=== PATIENT | female | born 1965 | race Two or more races ===

== ENCOUNTER 2017-09-23 10:42 | Emergency (ER) | payer OTHER ==
[~2017-09-23] VITALS: Ht 160 cm; Wt 49.4 kg
[~2017-09-23 10:42] MED LIST: ALPRAZOLAM0.25 MG PO; ATIVAN0.5 M1; ATROVENT 00.5 MG/2.5 IH; CLARITIN PO; CREON 10 CAPSU249 MG; FAMOTIDINE20 MG PO; Flonase 50MCG NS; IPRATROPIU0.2 MG/1 M IH; KLONOPIN0.125 MG/T PO; LEVSIN0.125 MG; MEDROL4 MG PO; MEGESTROL400 MG/10 PO; MUCOMYST IH; MULTIVITAMINS1 EAC1 PO; MYCELEX MM; NORVASC2.5 M1; NORVASC2.5 M1 PO; OMEPRAZOLE10 MG; PEPCID PO; PEPCID20 MG; PROTONIX20 MG; PROTONIX40 MG PO; PROVENTIL2.5 MG/3 M; PULMICORT1 MG/2 ML; Pulmicort 0.5 MG/2 ML AMPUL IH; REGLAN PO; SINGULAIR 10MG10 MG PO; SINGULAIR4 MG PO; Singulair 10MG PO; VERAMYST10 GM NS; Vasotec 10MG TAB PO; XOPENEX0.63 MG/3; XOPENEX0.63 MG/3 IH; Xopenex 0.63 MG/3 ML SOLUTION IH; ZOFRAN ODT4 MG; [UNRECOGNIZED DRUG - OTHER]; [UNRECOGNIZED DRUG - OTHER]
[2017-09-23] MEDS ORDERED: MIRTAZAPINE7.5 MG (11:12)
== END 2017-09-23 19:57 | disposition home or self-care (01) ==
LOC: ER 10:42
DX: K29.70 Gastritis, unspecified, without bleeding (principal); J45.909 Unspecified asthma, uncomplicated

== ENCOUNTER 2018-01-24 11:47 | Emergency (ER) | payer OTHER ==
[~2018-01-24] VITALS: Ht 160 cm; Wt 49.0 kg
[~2018-01-24 11:47] MED LIST changes: +MIRTAZAPINE7.5 MG
== END 2018-01-24 19:22 | disposition home or self-care (01) ==
LOC: ER 11:47
DX: K52.89 Other specified noninfective gastroenteritis and colitis (principal)

== ENCOUNTER 2018-04-25 07:08 | Outpatient (CLI) | payer OTHER | END 2018-04-25 07:21 | disposition home or self-care (01) | LOC: NUCLEAR 07:08 | DX: R07.89 Other chest pain (principal); I25.10 Atherosclerotic heart disease of native coronary artery without angina pectoris; J45.909 Unspecified asthma, uncomplicated | CPT/HCPCS: 78452; 93017; A9500; J1250 ==

== ENCOUNTER → 2018-05-02 | Outpatient (CLI) | payer OTHER | END | disposition home or self-care (01) | LOC: NUCLEAR 13:22 | DX: I82.401 Acute embolism and thrombosis of unspecified deep veins of right lower extremity (principal); R22.1 Localized swelling, mass and lump, neck ==

== ENCOUNTER 2019-01-16 08:21 | Outpatient (CLI) | payer OTHER | END 2019-01-16 08:24 | disposition home or self-care (01) | LOC: TOM 08:21 | DX: R10.30 Lower abdominal pain, unspecified (principal); Z13.0 Encounter for screening for diseases of the blood and blood-forming organs and certain disorders involving the immune mechanism; Z12.11 Encounter for screening for malignant neoplasm of colon ==

== ENCOUNTER 2019-01-30 15:08 | Emergency (ER) | payer OTHER ==
[~2019-01-30] VITALS: Ht 160 cm; Wt 68.9 kg
== END 2019-01-30 20:58 | disposition home or self-care (01) ==
LOC: ER 15:08
DX: J44.1 Chronic obstructive pulmonary disease with (acute) exacerbation (principal); J32.8 Other chronic sinusitis

== ENCOUNTER 2019-09-24 09:18 | Outpatient (CLI) | payer OTHER | END 2019-09-24 15:01 | disposition home or self-care (01) | LOC: RAD 09:18 | DX: M15.8 Other polyosteoarthritis (principal) ==

== ENCOUNTER 2021-01-08 13:19 | Inpatient (IN) | payer OTHER ==
[~2021-01-08] VITALS: Ht 160 cm; Wt 53.5 kg
[2021-01-08] MEDS ORDERED: FAMOTIDINE20 MG PO (13:50)
[2021-01-08] MEDS ORDERED: LEVSIN0.125 MG PO (13:51)
[2021-01-08] MEDS ORDERED: REMERON15 M1 PO (13:52)
[2021-01-08] MEDS ORDERED: INTESTINEX680 M1 PO (18:53)
[2021-01-08] MEDS ORDERED: MACROBID 100 M100 MG PO (18:53)
== END 2021-01-16 10:09 | disposition home or self-care (01) | DRG 690 ==
LOC: ER 13:19 → MEDI 23:18
PROVIDERS: ADMIT Internal Medicine Cardiovascular Disease; ATTEND Internal Medicine Cardiovascular Disease
PROC: 3E0F7SF Introduction of Other Gas into Respiratory Tract, Via Natural or Artificial Opening (ICD-10-PCS; 2021-01-09)
PROC: 0DB68ZX Excision of Stomach, Via Natural or Artificial Opening Endoscopic, Diagnostic (ICD-10-PCS; principal; 2021-01-11)
DX: N39.0 Urinary tract infection, site not specified (principal); J45.51 Severe persistent asthma with (acute) exacerbation; J44.1 Chronic obstructive pulmonary disease with (acute) exacerbation; Z20.822 Contact with and (suspected) exposure to COVID-19; Z21 Asymptomatic human immunodeficiency virus [HIV] infection status; B18.2 Chronic viral hepatitis C; F32.9 Major depressive disorder, single episode, unspecified; K29.80 Duodenitis without bleeding; R09.02 Hypoxemia

== ENCOUNTER 2021-02-28 13:34 | Inpatient (IN) | payer OTHER ==
[~2021-02-28] VITALS: Ht 162.6 cm; Wt 65.8 kg
[~2021-02-28 13:34] MED LIST changes: +INTESTINEX680 M1 PO; +LEVSIN0.125 MG PO; +MACROBID 100 M100 MG PO; +REMERON15 M1 PO
[2021-03-05] MEDS ORDERED: STIOLTO RESPIMAT4 GM (11:19)
== END 2021-03-05 13:17 | disposition home or self-care (01) | DRG 191 ==
LOC: ER 13:34 → MEDI 22:54 → MEDJ 03-03 11:24
PROVIDERS: ADMIT Internal Medicine Cardiovascular Disease; ATTEND Internal Medicine Cardiovascular Disease
PROC: 3E0F7SF Introduction of Other Gas into Respiratory Tract, Via Natural or Artificial Opening (ICD-10-PCS; principal; 2021-02-28)
DX: J44.1 Chronic obstructive pulmonary disease with (acute) exacerbation (principal); J45.52 Severe persistent asthma with status asthmaticus; E09.9 Drug or chemical induced diabetes mellitus without complications; K29.50 Unspecified chronic gastritis without bleeding; Z20.822 Contact with and (suspected) exposure to COVID-19

== ENCOUNTER 2021-08-02 13:58 | Inpatient (IN) | payer OTHER ==
[~2021-08-02] VITALS: Ht 160 cm; Wt 52.6 kg
[~2021-08-02 13:58] MED LIST changes: +STIOLTO RESPIMAT4 GM
[2021-08-07] MEDS ORDERED: FAMOTIDINE20 MG/2 M1 (10:26)
== END 2021-08-08 18:48 | DRG 392 ==
LOC: ER 13:58 → MEDJ 08-03 19:59 → MEDI 08-03 19:59 → MEDJ 08-03 22:48
PROVIDERS: ADMIT Internal Medicine Cardiovascular Disease; ATTEND Internal Medicine Cardiovascular Disease
PROC: BW21YZZ Computerized Tomography (CT Scan) of Abdomen and Pelvis using Other Contrast (ICD-10-PCS; principal; 2021-08-06)
DX: K57.30 Diverticulosis of large intestine without perforation or abscess without bleeding (principal); J45.901 Unspecified asthma with (acute) exacerbation; J44.9 Chronic obstructive pulmonary disease, unspecified; K29.00 Acute gastritis without bleeding; R10.13 Epigastric pain; Z20.822 Contact with and (suspected) exposure to COVID-19; I10 Essential (primary) hypertension

== ENCOUNTER 2021-09-17 15:33 | Inpatient (IN) | payer OTHER ==
[~2021-09-17] VITALS: Ht 160 cm; Wt 49.0 kg
[~2021-09-17 15:33] MED LIST changes: +FAMOTIDINE20 MG/2 M1
[2021-09-18] MEDS ORDERED: MONTELUKAST SOD10 MG (08:05)
[2021-09-29] MEDS ORDERED: POM (MEDICAMENTO EN IH (19:41)
[2021-09-29] MEDS ORDERED: XOPENEX0.63 MG/3 IH (19:41)
[2021-09-29] MEDS ORDERED: CEFTRIAXONE1 GM IM (19:41)
[2021-09-29] MEDS ORDERED: PRE PROTEIN1 EACH PO (19:41)
[2021-09-29] MEDS ORDERED: LORATADINE10 MG PO (19:41)
[2021-09-29] MEDS ORDERED: CLOTRIMAZOLE10 MG MM (19:41)
[2021-09-29] MEDS ORDERED: FAMOTIDINE20 MG PO (19:41)
[2021-09-29] MEDS ORDERED: FARXIGA5 MG PO (19:41)
[2021-09-29] MEDS ORDERED: REMERON15 M1 PO (19:41)
[2021-09-29] MEDS ORDERED: CHEST CONGESTI400 MG PO (19:49)
== END 2021-09-29 19:58 | DRG 208 ==
LOC: ER 15:33 → SEC-K 21:03 → MEDJ 21:03 → ICU 09-20 21:54 → MEDJ 09-26 14:44 → ICU 09-26 14:52 → MEDJ 09-26 20:48
PROVIDERS: ADMIT Internal Medicine Cardiovascular Disease; ATTEND Internal Medicine Cardiovascular Disease
PROC: 5A1945Z Respiratory Ventilation, 24-96 Consecutive Hours (ICD-10-PCS; principal; 2021-09-18)
PROC: 0BH17EZ Insertion of Endotracheal Airway into Trachea, Via Natural or Artificial Opening (ICD-10-PCS; 2021-09-18)
PROC: 4A12X4Z Monitoring of Cardiac Electrical Activity, External Approach (ICD-10-PCS; 2021-09-18)
PROC: 02HV33Z Insertion of Infusion Device into Superior Vena Cava, Percutaneous Approach (ICD-10-PCS; 2021-09-21)
DX: J44.1 Chronic obstructive pulmonary disease with (acute) exacerbation (principal); J45.52 Severe persistent asthma with status asthmaticus; G72.81 Critical illness myopathy; R09.02 Hypoxemia; E09.65 Drug or chemical induced diabetes mellitus with hyperglycemia; J32.8 Other chronic sinusitis; I50.9 Heart failure, unspecified; J84.10 Pulmonary fibrosis, unspecified; K29.60 Other gastritis without bleeding; I11.0 Hypertensive heart disease with heart failure; Z20.822 Contact with and (suspected) exposure to COVID-19; Z79.4 Long term (current) use of insulin

== ENCOUNTER 2022-01-23 11:34 | Inpatient (IN) | payer OTHER ==
[~2022-01-23] VITALS: Ht 160 cm; Wt 52.6 kg
[~2022-01-23 11:34] MED LIST changes: +CEFTRIAXONE1 GM IM; +CHEST CONGESTI400 MG PO; +CLOTRIMAZOLE10 MG MM; +FARXIGA5 MG PO; +LORATADINE10 MG PO; +MONTELUKAST SOD10 MG; +POM (MEDICAMENTO EN IH; +PRE PROTEIN1 EACH PO
[2022-01-23] MEDS ORDERED: BUDEO.25 IH (11:42)
--- NOTE | 2022-01-23 11:43 | NUR ---
SE RECIBE PTE ALERTA Y ORIENTADA X3,REFIERE MARQUIS TENIDO 4 EMESIS HASTA LA MADRUGADA DE HOY ,REFIERE QUE LA SEMANA PASADA TUVO LOS MISMOS SINTOMAS,NAUSEA ,DOLOR ABDOMINAL.
--- NOTE | 2022-01-23 12:55 | NUR ---
PACIENTE EVALUADA POR DR CELESTIN QUIEN [place] MEDICO, SE ORIENTA A PACIENTE SOBRE EL MISMO Y REFIERE ENTENDER, SE COLECTAN MUESTRAS DE LABORATORIO Y SE CANALIZA BAJO MEDIDAS ASEPTICAS. AREA DE CANALIZACION PATENTE, PHU DE EDEMA Y ERITEMA. SE MANTIENE BAJO OBSERVACION POR CAMBIOS SIGNIFICATIVOS EN VINCENT TRATAMIENTO MEDICO.
--- NOTE | 2022-01-23 23:09 | NUR ---
PACIENTE ALERTA Y ORIENTADA X3. EN TA CON BARANDAS ELEVADAS. RECIBIENDO 0.9% NSS DE 1,000ML BAJANDO A 125ML/HR. PACIENTE CONSULTADA CON WENDY. JOSEPH GRECO. SE MANTIENE BAJO OBSERVACION POR CAMBIOS SIGNIFICATIVOS.
--- NOTE | 2022-01-24 07:07 | NUR ---
PACIENTE FEMENINA ALERTA Y ORIENTADA EN L[place] ALCIDES ESFERAS SE OBSERVA CON BUEN PATRON RESPIRATORIO, CANALIZACION PATENTE, LIMPIA Y SECA CON IVF 0.9NSS AT 175ML/HR. PACIENTE CONSULTADA CON DRA OLIVIER. SE MANTIENE PACIENTE EN OBSERVACION.
[2022-01-30] MEDS ORDERED: CLOTRIMAZOLE-BE15 G1 (10:23)
[2022-02-01] MEDS ORDERED: PHENERGAN25 MG PO (13:00)
[2022-02-01] MEDS ORDERED: HYOSCYAMINE0.125 M1 SL (13:23)
[2022-02-01] MEDS ORDERED: LANSOPRAZOLE30 MG PO ×2 (13:27→13:32)
== END 2022-02-01 16:35 | disposition home or self-care (01) | DRG 392 ==
LOC: ER 11:34 → SEC-K 01-24 12:56 → MEDI 01-24 20:41
PROVIDERS: ADMIT Internal Medicine Cardiovascular Disease; ATTEND Internal Medicine Cardiovascular Disease
PROC: 02HV33Z Insertion of Infusion Device into Superior Vena Cava, Percutaneous Approach (ICD-10-PCS; 2022-01-25)
PROC: 0DB68ZX Excision of Stomach, Via Natural or Artificial Opening Endoscopic, Diagnostic (ICD-10-PCS; principal; 2022-01-29)
PROC: 0DJD8ZZ Inspection of Lower Intestinal Tract, Via Natural or Artificial Opening Endoscopic (ICD-10-PCS; 2022-01-30)
DX: K29.50 Unspecified chronic gastritis without bleeding (principal); K57.30 Diverticulosis of large intestine without perforation or abscess without bleeding; K20.80 Other esophagitis without bleeding; Z20.822 Contact with and (suspected) exposure to COVID-19; J44.9 Chronic obstructive pulmonary disease, unspecified

== ENCOUNTER 2022-05-04 10:07 | Emergency (ER) | payer OTHER ==
[~2022-05-04] VITALS: Ht 162.6 cm; Wt 44.5 kg
[~2022-05-04 10:07] MED LIST changes: +BUDEO.25 IH; +CLOTRIMAZOLE-BE15 G1; +HYOSCYAMINE0.125 M1 SL; +LANSOPRAZOLE30 MG PO; +PHENERGAN25 MG PO
[2022-05-04] MEDS ORDERED: PREVACID30 MG (10:17)
[2022-05-05] MEDS ORDERED: PEPCID AC20 MG PO (11:47)
[2022-05-05] MEDS ORDERED: NASAL MIST126 ML NASAL (11:47)
[2022-05-05] MEDS ORDERED: PREVACID30 MG PO (11:47)
[2022-05-05] MEDS ORDERED: IPRAT-ALBUT 0.5-3 ML IH (11:47)
== END 2022-05-05 12:28 | disposition home or self-care (01) ==
LOC: ER 10:07
DX: J45.901 Unspecified asthma with (acute) exacerbation (principal); J44.1 Chronic obstructive pulmonary disease with (acute) exacerbation; R06.02 Shortness of breath; K29.70 Gastritis, unspecified, without bleeding; K20.90 Esophagitis, unspecified without bleeding; I10 Essential (primary) hypertension; Z88.8 Allergy status to other drugs, medicaments and biological substances; Z88.6 Allergy status to analgesic agent; Z91.011 Allergy to milk products; Z20.822 Contact with and (suspected) exposure to COVID-19

== ENCOUNTER 2022-05-14 11:22 | Inpatient (IN) | payer OTHER ==
[~2022-05-14] VITALS: Ht 160 cm; Wt 44.5 kg
[~2022-05-14 11:22] MED LIST changes: +IPRAT-ALBUT 0.5-3 ML IH; +NASAL MIST126 ML NASAL; +PEPCID AC20 MG PO; +PREVACID30 MG; +PREVACID30 MG PO
[2022-05-26] MEDS ORDERED: LORATADINE10 MG PO (13:58)
[2022-05-26] MEDS ORDERED: AMLODIPINE BESYL5 MG PO (13:59)
[2022-05-26] MEDS ORDERED: VASOTEC20 MG PO (14:01)
[2022-05-26] MEDS ORDERED: ISOSORBIDE MONO30 MG PO (14:02)
[2022-05-26] MEDS ORDERED: LORAZEPAM0.5 MG PO (14:03)
[2022-05-26] MEDS ORDERED: TUSSIN MUC100 MG/5 M PO (14:04)
[2022-05-26] MEDS ORDERED: FAMOTIDINE20 MG PO (14:07)
[2022-05-26] MEDS ORDERED: CLOTRIMAZOLE10 MG MM (14:08)
[2022-05-26] MEDS ORDERED: ELIQUIS5 MG PO (14:13)
[2022-05-26] MEDS ORDERED: IPRAT-ALBUT 0.5-3 ML IH (14:22)
== END 2022-05-26 15:03 | disposition home or self-care (01) | DRG 190 ==
LOC: ER 11:22 → SURH 18:38 → MEDJ 18:38 → SURH 18:42 → ICU 05-16 03:09 → MEDI 05-23 23:04
PROVIDERS: ADMIT Internal Medicine Cardiovascular Disease; ATTEND Internal Medicine Cardiovascular Disease
PROC: 3E0F7GC Introduction of Other Therapeutic Substance into Respiratory Tract, Via Natural or Artificial Opening (ICD-10-PCS; 2022-05-14)
PROC: 5A09557 Assistance with Respiratory Ventilation, Greater than 96 Consecutive Hours, Continuous Positive Airway Pressure (ICD-10-PCS; 2022-05-15)
PROC: B246ZZZ Ultrasonography of Right and Left Heart (ICD-10-PCS; 2022-05-16)
PROC: 02HV33Z Insertion of Infusion Device into Superior Vena Cava, Percutaneous Approach (ICD-10-PCS; principal; 2022-05-17)
PROC: 4A12X4Z Monitoring of Cardiac Electrical Activity, External Approach (ICD-10-PCS; 2022-05-24)
DX: J44.1 Chronic obstructive pulmonary disease with (acute) exacerbation (principal); K26.4 Chronic or unspecified duodenal ulcer with hemorrhage; E87.29 Other acidosis; N39.0 Urinary tract infection, site not specified; K29.00 Acute gastritis without bleeding; J32.8 Other chronic sinusitis; D64.9 Anemia, unspecified; R77.8 Other specified abnormalities of plasma proteins; A49.01 Methicillin susceptible Staphylococcus aureus infection, unspecified site; I10 Essential (primary) hypertension; K20.80 Other esophagitis without bleeding; C50.919 Malignant neoplasm of unspecified site of unspecified female breast; E09.65 Drug or chemical induced diabetes mellitus with hyperglycemia; Z20.822 Contact with and (suspected) exposure to COVID-19

== ENCOUNTER 2022-07-19 06:46 | Inpatient (IN) | payer OTHER ==
[~2022-07-19] VITALS: Ht 157.5 cm; Wt 44.0 kg
[~2022-07-19 06:46] MED LIST changes: +AMLODIPINE BESYL5 MG PO; +ELIQUIS5 MG PO; +ISOSORBIDE MONO30 MG PO; +LORAZEPAM0.5 MG PO; +TUSSIN MUC100 MG/5 M PO; +VASOTEC20 MG PO
[2022-08-07] MEDS ORDERED: VASOTEC10 MG PO (19:21)
[2022-08-07] MEDS ORDERED: LORATADINE10 MG PO (19:21)
[2022-08-07] MEDS ORDERED: ELIQUIS2.5 MG PO (19:21)
[2022-08-07] MEDS ORDERED: SERTRALINE HCL50 MG PO (19:21)
[2022-08-07] MEDS ORDERED: IPRAT-ALBUT 0.5-3 ML IH (19:21)
[2022-08-07] MEDS ORDERED: TRELEGY ELLIPT1 EACH PO (19:23)
[2022-08-07] MEDS ORDERED: INTEGRA CAPSUL1 EACH PO (19:26)
== END 2022-08-08 13:20 | DRG 207 ==
LOC: ER 06:46 → ICU 11:35 → ICU-2 11:35 → ICU 14:08 → MEDI 08-01 14:10
PROVIDERS: ADMIT Internal Medicine Cardiovascular Disease; ATTEND Internal Medicine Cardiovascular Disease
PROC: 0BH18EZ Insertion of Endotracheal Airway into Trachea, Via Natural or Artificial Opening Endoscopic (ICD-10-PCS; principal; 2022-07-20)
PROC: 5A1955Z Respiratory Ventilation, Greater than 96 Consecutive Hours (ICD-10-PCS; 2022-07-20)
PROC: 05HM33Z Insertion of Infusion Device into Right Internal Jugular Vein, Percutaneous Approach (ICD-10-PCS; 2022-07-23)
PROC: B34HZZZ Ultrasonography of Right Upper Extremity Arteries (ICD-10-PCS; 2022-07-23)
PROC: B54PZZZ Ultrasonography of Bilateral Upper Extremity Veins (ICD-10-PCS; 2022-07-23)
PROC: 5A0945A Assistance with Respiratory Ventilation, 24-96 Consecutive Hours, High Flow/Velocity Cannula (ICD-10-PCS; 2022-07-29)
PROC: 4A12X4Z Monitoring of Cardiac Electrical Activity, External Approach (ICD-10-PCS; 2022-08-01)
DX: J44.1 Chronic obstructive pulmonary disease with (acute) exacerbation (principal); J96.02 Acute respiratory failure with hypercapnia; J45.52 Severe persistent asthma with status asthmaticus; J70.1 Chronic and other pulmonary manifestations due to radiation; E87.4 Mixed disorder of acid-base balance; N39.0 Urinary tract infection, site not specified; I10 Essential (primary) hypertension; E09.9 Drug or chemical induced diabetes mellitus without complications

== ENCOUNTER 2022-10-02 12:12 | Inpatient (IN) | payer OTHER ==
[~2022-10-02] VITALS: Ht 152.4 cm; Wt 52.2 kg
[~2022-10-02 12:12] MED LIST changes: +ELIQUIS2.5 MG PO; +INTEGRA CAPSUL1 EACH PO; +SERTRALINE HCL50 MG PO; +TRELEGY ELLIPT1 EACH PO; +VASOTEC10 MG PO
[2022-10-04] MEDS ORDERED: MONTELUKAST SOD10 MG (08:31)
[2022-10-14] MEDS ORDERED: LORATADINE10 MG PO (21:25)
[2022-10-14] MEDS ORDERED: IPRAT-ALBUT 0.5-3 ML IH (21:25)
[2022-10-14] MEDS ORDERED: REMERON15 M1 PO (21:26)
[2022-10-14] MEDS ORDERED: LORAZEPAM0.5 MG PO (21:26)
[2022-10-14] MEDS ORDERED: VASOTEC10 MG PO (21:26)
[2022-10-14] MEDS ORDERED: SERTRALINE HCL50 MG PO (21:27)
[2022-10-14] MEDS ORDERED: PRE PROTEIN1 EACH PO (21:28)
[2022-10-14] MEDS ORDERED: TUSSIN MUC100 MG/5 M PO (21:30)
[2022-10-14] MEDS ORDERED: MEGESTROL400 MG/11 PO (21:31)
[2022-10-14] MEDS ORDERED: TRELEGY ELLIPT1 EACH PO (21:31)
[2022-10-14] MEDS ORDERED: PEPCID AC20 MG PO (21:32)
[2022-10-14] MEDS ORDERED: LANSOPRAZOLE30 MG PO (21:32)
== END 2022-10-15 10:25 | disposition home or self-care (01) | DRG 190 ==
LOC: ER 12:12 → SEC-K 10-03 11:13 → MEDJ 10-03 11:13 → ICU 10-05 02:54 → MEDJ 10-11 11:14
PROVIDERS: ADMIT Internal Medicine Cardiovascular Disease; ATTEND Internal Medicine Cardiovascular Disease
PROC: BW24ZZZ Computerized Tomography (CT Scan) of Chest and Abdomen (ICD-10-PCS; 2022-10-03)
PROC: 5A0935A Assistance with Respiratory Ventilation, Less than 24 Consecutive Hours, High Flow/Velocity Cannula (ICD-10-PCS; 2022-10-03)
PROC: 4A12X4Z Monitoring of Cardiac Electrical Activity, External Approach (ICD-10-PCS; 2022-10-04)
PROC: 5A09457 Assistance with Respiratory Ventilation, 24-96 Consecutive Hours, Continuous Positive Airway Pressure (ICD-10-PCS; 2022-10-04)
PROC: 02HV33Z Insertion of Infusion Device into Superior Vena Cava, Percutaneous Approach (ICD-10-PCS; principal; 2022-10-05)
PROC: B24BYZZ Ultrasonography of Heart with Aorta using Other Contrast (ICD-10-PCS; 2022-10-09)
DX: J44.1 Chronic obstructive pulmonary disease with (acute) exacerbation (principal); J18.9 Pneumonia, unspecified organism; J96.92 Respiratory failure, unspecified with hypercapnia; J45.902 Unspecified asthma with status asthmaticus; K21.9 Gastro-esophageal reflux disease without esophagitis; I10 Essential (primary) hypertension; E09.9 Drug or chemical induced diabetes mellitus without complications; Z99.81 Dependence on supplemental oxygen; Z79.51 Long term (current) use of inhaled steroids

== ENCOUNTER 2022-12-03 12:37 | Inpatient (IN) | payer OTHER ==
[~2022-12-03] VITALS: Ht 160 cm; Wt 44.0 kg
[~2022-12-03 12:37] MED LIST changes: +MEGESTROL400 MG/11 PO
[2022-12-05] MEDS ORDERED: FLONASE16 GM (09:36)
[2022-12-10] MEDS ORDERED: TRELEGY ELLIPT1 EACH PO (19:01)
[2022-12-10] MEDS ORDERED: VASOTEC10 MG PO (19:01)
[2022-12-10] MEDS ORDERED: ISOSORBIDE MONO30 MG PO (19:01)
[2022-12-10] MEDS ORDERED: PEPCID AC20 MG PO (19:01)
[2022-12-10] MEDS ORDERED: MONTELUKAST SOD10 MG PO (19:01)
[2022-12-10] MEDS ORDERED: NASAL MIST126 ML NASAL (19:01)
[2022-12-10] MEDS ORDERED: PRE PROTEIN1 EACH PO (19:01)
[2022-12-10] MEDS ORDERED: LORATADINE10 MG PO (19:01)
[2022-12-10] MEDS ORDERED: SERTRALINE HCL50 MG PO (19:01)
[2022-12-10] MEDS ORDERED: INTEGRA CAPSUL1 EACH PO (19:01)
[2022-12-10] MEDS ORDERED: IPRAT-ALBUT 0.5-3 ML IH (19:01)
[2022-12-10] MEDS ORDERED: MEGESTROL400 MG/11 PO (19:01)
[2022-12-10] MEDS ORDERED: ELIQUIS2.5 MG PO (19:01)
[2022-12-10] MEDS ORDERED: LANSOPRAZOLE30 MG PO (19:01)
[2022-12-10] MEDS ORDERED: TUSSIN MUC100 MG/5 M PO (19:01)
[2022-12-10] MEDS ORDERED: AMLODIPINE BESYL5 MG PO (19:01)
[2022-12-10] MEDS ORDERED: LORAZEPAM0.5 MG PO (19:01)
[2022-12-10] MEDS ORDERED: REMERON15 M1 PO (19:01)
[2022-12-10] MEDS ORDERED: CLOTRIMAZOLE10 MG MM (19:01)
== END 2022-12-10 19:19 | disposition home or self-care (01) | DRG 202 ==
LOC: ER 12:37 → MEDJ 21:46 → MEDI 12-04 11:12
PROVIDERS: ADMIT Internal Medicine Cardiovascular Disease; ATTEND Internal Medicine Cardiovascular Disease
DX: J45.51 Severe persistent asthma with (acute) exacerbation (principal); J96.01 Acute respiratory failure with hypoxia; J96.02 Acute respiratory failure with hypercapnia; J44.1 Chronic obstructive pulmonary disease with (acute) exacerbation; K21.9 Gastro-esophageal reflux disease without esophagitis; Z20.822 Contact with and (suspected) exposure to COVID-19; J32.8 Other chronic sinusitis

== ENCOUNTER 2023-08-21 11:01 | Outpatient (CLI) | payer OTHER ==
[~2023-08-21 11:01] MED LIST changes: +FLONASE16 GM; +MONTELUKAST SOD10 MG PO
== END 2023-08-21 15:19 | disposition home or self-care (01) ==
LOC: RAD 11:01
PROVIDERS: ATTEND Internal Medicine Cardiovascular Disease
DX: R07.9 Chest pain, unspecified (principal)

== ENCOUNTER 2024-03-02 12:06 | Outpatient (CLI) | payer OTHER | END 2024-03-02 12:12 | disposition home or self-care (01) | LOC: RAD 12:06 | PROVIDERS: ATTEND Internal Medicine Cardiovascular Disease | DX: J44.9 Chronic obstructive pulmonary disease, unspecified (principal) ==

== ENCOUNTER 2024-04-16 11:04 | Outpatient (CLI) | payer OTHER ==
[2024-04-16 11:48] LABS: HEMATOCRIT 39.1 % (36.0-45.00); HEMOGLOBIN 13.4 g/dL (12.0-15.00); MEAN CELL VOLUME 91.5 fL (80.00-100.00); MEAN CORPUSCULAR HEMOGLOBIN 31.4 pg (27.00-32.0); MEAN CORPUSCULAR HGB CONC 34.3 g/dl (32.0-36.0); PLATELET COUNT 335 K/uL (150-450); RED BLOOD COUNT 4.27 M/uL (4.00-6.00); RED CELL DISTRIBUTION WIDTH 12.8 % (11.5-14.5)
[2024-04-16 11:54] LABS: ABG PH 7.357 (7.35-7.45); ABG PO2 82.8 mmHg (80-100); ABG pCO2 43.5 mmHg (35-45); BASE EXCESS -1.7 mmol/l; BICARBONATE 23.9 mmol/l (23-25); SaO2 95.5 %; Tco2 25.2 mmol/l; allen test SATISFACTORY; o2 24 %; puncture site RADIAL RIGHT
[2024-04-16 12:01] LABS: ERYTHROCYTE SEDIMENTATION RATE 30 mm/hr
[2024-04-16 12:49] LABS: ALBUMIN 3.2 gm/dL (3.4-5.0); BILIRUBIN TOTAL 0.37 mg/dL (0.3-1.2); CALCIUM 9.2 mg/dL (8.5-10.1); CREATININE SERUM 0.72 mg/dL (0.55-1.02); GFR 83.2; GLOBULINA 3.8 G/DL (2.4-3.5); POTASSIUM 3.99 mEq/L (3.5-5.1)
== END 2024-04-16 11:12 | disposition home or self-care (01) ==
LOC: RAD 11:04
PROVIDERS: ATTEND Internal Medicine Cardiovascular Disease
DX: J44.9 Chronic obstructive pulmonary disease, unspecified (principal); D64.9 Anemia, unspecified; J45.902 Unspecified asthma with status asthmaticus

== ENCOUNTER 2024-04-17 11:45 | Outpatient (CLI) | payer OTHER | END 2024-04-17 11:50 | disposition home or self-care (01) | LOC: LAB 11:45 | PROVIDERS: ATTEND Internal Medicine Cardiovascular Disease | DX: J44.9 Chronic obstructive pulmonary disease, unspecified (principal); D64.9 Anemia, unspecified; J45.902 Unspecified asthma with status asthmaticus ==

== ENCOUNTER 2025-04-02 10:16 | Outpatient (CLI) | payer OTHER | END 2025-04-02 10:17 | disposition home or self-care (01) | LOC: NUCLEAR 10:16 | PROVIDERS: ATTEND Internal Medicine | DX: I10 Essential (primary) hypertension (principal) ==

== ENCOUNTER 2025-05-05 14:12 | Inpatient (IN) | payer OTHER ==
[~2025-05-05] VITALS: Ht 160 cm; Wt 54.4 kg
--- NOTE | 2025-05-05 14:39 | NUR ---
PACIENTE ALERTA YORIENTADA X3 QUIEN REFIERE VENIR POR DIARREA Y DOLOR ABDOMINAL. PACIENTE EXPRERSA ESTAR CON DIARREA DESDE HACE UN MES. SHARLA LA MEDICION DE SIGNOS VITALES PACIENTE CON MANUAL B/P 68/40.
[2025-05-05] MEDS ORDERED: FAMOTIDINE/PF 20 MG/2 ML VIAL IV ONE (15:30)
[2025-05-05] MEDS ORDERED: IPRATROPIUM/ALBUTEROL SULFATE 3 ML AMPUL.NEB IH SCH (15:30)
[2025-05-05] MEDS ORDERED: LACTOBACILLUS ACIDOPHILUS 1 CAP CAP PO ONE ×2 (15:30→15:53)
[2025-05-05] MEDS ORDERED: 0.9 % SODIUM CHLORIDE 1,000 ML IV ONE (15:30)
[2025-05-05] MEDS ORDERED: ONDANSETRON HCL 2 MG/ML VIAL IV ONE (15:45)
[2025-05-05] MEDS ORDERED: FAMOTIDINE/PF 20 MG/2 ML VIAL ONE (15:54)
[2025-05-05] MEDS ORDERED: ONDANSETRON HCL 2 MG/ML VIAL ONE (16:18)
--- NOTE | 2025-05-05 16:18 | NUR ---
RN MOREJON ORIENTA PTE SOBRE TRATMIENTO Y LO EJECUTA EN VINCENT TOTALIDAD
[2025-05-05 16:30] LABS: BASO % 0.3 % (0.1-1.2); EOS # 0.91 (0.04-0.54); EOS % 9.3 % (0.7-7.0); LYMPH # 2.79 (1.18-3.74); LYMPH % 28.5 % (19.3-53.1); MEAN PLATELET VOLUME 10.00 fl (9.4-12.4); MONO # 0.83 (0.24-0.82); MONO % 8.5 % (4.7-12.5); NEUT # 5.20 (1.56-6.13); NEUT % 53.1 % (34.0-71.1); RED CELL DISTRIBUTION WIDTH 12.5 % (11.6-14.4)
[2025-05-05 17:05] LABS: ALT/SGPT 27.0 U/L (12-78); AST/SGOT 15.0 U/L (15-37); BILIRUBIN TOTAL 0.17 mg/dL (0.3-1.2); BUN CREA RATIO 17.0 (7.0-25.0); CREATININE SERUM 3.03 mg/dL (0.55-1.02); GFR 15.79; GLOBULINA 3.3 G/DL (2.4-3.5); GLUCOSE FASTING 111.0 mg/dL (65-100); OSMOLALITY SERUM 298.0 MOSM/KG (275-295)
[2025-05-05 17:12] LABS: URINE APPEARANCE Cloudy; URINE BILIRRUBIN Moderate (NEGATIVE); URINE BLOOD Negative; URINE COLOR Dark Yellow; URINE GLUCOSE Negative (NEGATIVE); URINE KETONE 15 (NEGATIVE); URINE LEUKOCYTE Trace; URINE NITRATE Negative; URINE PROTEIN 30 (NEGATIVE); URINE UROBILINOGEN 1.0 E.U./dl
[2025-05-05 17:16] LABS: URINE BACTERIA 112.7 uL (0.0-1933); URINE EPITHELIAL CELLS 34.3 uL (0.0-38.8); URINE RBC 38.5 uL (0.0-20.8); URINE WBC 29.6 uL (0.0-23.2)
[2025-05-05] MEDS ORDERED: IPRATROPIUM/ALBUTEROL SULFATE 3 ML AMPUL.NEB IH ONE ×2 (17:20→23:43)
[2025-05-05 17:26] LABS: COVID-19 AG NEGATIVE (NEGATIVE)
[2025-05-05 17:47] LABS: URINE CAST > 21.83 uL (0.0-1.40); URINE MUCUS MODERATE
[2025-05-05 17:48] LABS: TYPE CELLS SQUAMOUS; URINE CRYSTALS MODERATE /HPF
[2025-05-05] MEDS ORDERED: HYOSCYAMINE SULFATE 0.125 MG TAB.SUBL SL SCH (18:33)
[2025-05-05] MEDS ORDERED: LOPERAMIDE HCL 2 MG CAPSULE PO ONE ×2 (18:37→18:45)
[2025-05-05] MEDS ORDERED: HYOSCYAMINE SULFATE 0.125 MG TAB.SUBL ONE (18:38)
[2025-05-05] MEDS ORDERED: 0.9 % SODIUM CHLORIDE 1,000 ML IV SCH (18:45)
[2025-05-05] MEDS ORDERED: ONDANSETRON HCL 4 MG in DEXTROSE 5 % IN WATER 50 ML IV PRN (18:45)
[2025-05-05] MEDS ORDERED: LORazepam 2 MG/ML VIAL IV ONE (19:00)
--- NOTE | 2025-05-05 20:06 | NUR ---
SE LLAMA A WENDY.GRECO REFERENTE A MEDICAMENTO ATIVAN POR PRESIONES DE PTE LA MISMA VERBALIZA QUE GERARDO VALERA)
[2025-05-06] MEDS ORDERED: IPRATROPIUM/ALBUTEROL SULFATE 3 ML AMPUL.NEB IH SCH
[2025-05-06] MEDS ORDERED: IPRATROPIUM/ALBUTEROL SULFATE 3 ML AMPUL.NEB IH ONE ×4 (00:24→16:34)
[2025-05-06 06:45] LABS: BUN CREA RATIO 28.0 (7.0-25.0); CREATININE SERUM 1.51 mg/dL (0.55-1.02); GFR 35.27; GLUCOSE FASTING 72.0 mg/dL (65-100); OSMOLALITY SERUM 304.0 MOSM/KG (275-295)
--- NOTE | 2025-05-06 07:41 | NUR ---
SE RECIBE PTE FEMENINA DE 59 YRS ALERTA CONCIENTE Y TRANQUILA EN CAMA CON BRABDA SE ELEVAD CONCETADA A MONIOTOR CARDIACO ,SE LE OBSERBVA .9NSS A 120 Y SE LE JIMMY S/V Y SE DOCUEMTA. SE LE NOTIFICA A TERAPIA RESPIRATORIA, SE MANTIENE PHU DE DOLOR.
[2025-05-06] MEDS ORDERED: HYOSCYAMINE SULFATE 0.125 MG TAB.SUBL ONE ×2 (07:45→16:55)
[2025-05-06] MEDS ORDERED: FAMOTIDINE/PF 20 MG/2 ML VIAL ONE ×2 (07:45→16:55)
[2025-05-06] MEDS ORDERED: FAMOTIDINE/PF 20 MG/2 ML VIAL IV SCH (09:00)
[2025-05-06] MEDS ORDERED: METHYLPREDNISOLONE SOD SUCC 125 MG VIAL IV STA (12:56)
[2025-05-06] MEDS ORDERED: LORazepam 2 MG/ML VIAL IV ONE (13:00)
[2025-05-06 13:08] LABS: ABG PH 7.273 (7.35-7.45); ABG PO2 74.5 mmHg (80-100); BICARBONATE 18.4 mmol/l (23-25)
[2025-05-06 13:09] LABS: o2 32 %
[2025-05-06] MEDS ORDERED: METHYLPREDNISOLONE SOD SUCC 125 MG VIAL ONE (13:23)
[2025-05-06] MEDS ORDERED: LORazepam 2 MG/ML VIAL ONE (13:24)
[2025-05-06] MEDS ORDERED: SODIUM CHLORIDE 0.45 % 1,000 ML IV SCH ×2 (13:30)
[2025-05-06] MEDS ORDERED: ONDANSETRON HCL 4 MG in DEXTROSE 5 % IN WATER 50 ML IV PRN (13:45)
[2025-05-06 16:45] VITALS: BP 125/74; O2SAT 98
[2025-05-06] MEDS ORDERED: INSULIN LISPRO 1,000 UNIT/10 ML UNITS SUBCUTANEO PRN (17:30)
[2025-05-06] MEDS ORDERED: DEXTROSE 50 % IN WATER 0.5 G/ML VIAL IV PRN (17:30)
[2025-05-06] MEDS ORDERED: MONTELUKAST SODIUM 10 MG TABLET PO SCH (17:41)
[2025-05-06] MEDS ORDERED: METHYLPREDNISOLONE SOD SUCC 40 MG VIAL IV SCH (18:00)
[2025-05-06] MEDS ORDERED: METHYLPREDNISOLONE SOD SUCC 40 MG VIAL ONE (18:52)
[2025-05-06] MEDS ORDERED: MONTELUKAST SODIUM 10 MG TABLET PO ONE (18:52)
[2025-05-07 05:49] VITALS: BP 134/94; O2SAT 98
[2025-05-07] MEDS ORDERED: CEFTRIAXONE SODIUM 2,000 MG VIAL IV SCH (09:00)
[2025-05-07 10:09] VITALS: BP 144/91; O2SAT 100
[2025-05-07] MEDS ORDERED: LOPERAMIDE HCL 2 MG CAPSULE PO NR (16:00)
[2025-05-07] MEDS ORDERED: ALBUTEROL SULFATE 0.5 ML/2.5 MG SOLUTION IH SCH (16:00)
[2025-05-07] MEDS ORDERED: IPRATROPIUM BROMIDE 0.5 MG/2.5 ML AMPUL.NEB IH SCH (16:00)
[2025-05-07] MEDS ORDERED: IPRATROPIUM/ALBUTEROL SULFATE 3 ML AMPUL.NEB IH SCH (17:00)
[2025-05-07] MEDS ORDERED: SUCRALFATE 1 G TABLET PO SCH (17:00)
[2025-05-07 17:49] VITALS: O2SAT 89
[2025-05-07 17:55] VITALS: BP 136/86
[2025-05-07] MEDS ORDERED: METHYLPREDNISOLONE SOD SUCC 40 MG VIAL IV SCH (18:00)
[2025-05-07 19:19] LABS: ABG PH 7.352 (7.35-7.45)
[2025-05-07 19:20] LABS: BICARBONATE 19.2 mmol/l (23-25); o2 32 %
[2025-05-07 19:21] LABS: ABG PO2 69.2 mmHg (80-100)
[2025-05-07 22:05] VITALS: O2SAT 90
[2025-05-08] VITALS (7 sets, daily range): BP systolic 108–126; BP diastolic 65–86; O2SAT 96–100
[2025-05-08] MEDS ORDERED: ONDANSETRON HCL 4 MG in DEXTROSE 5 % IN WATER 50 ML IV PRN (15:45)
[2025-05-08] MEDS ORDERED: LANSOPRAZOLE 30 MG CAPSULE PO SCH (17:00)
[2025-05-08] MEDS ORDERED: CLOPIDOGREL BISULFATE 75 MG TABLET PO SCH (17:00)
[2025-05-08] MEDS ORDERED: FAMOTIDINE/PF 20 MG/2 ML VIAL IV SCH (17:00)
[2025-05-09] VITALS (7 sets, daily range): BP systolic 110–126; BP diastolic 68–81; O2SAT 98–100
[2025-05-09 08:32] LABS: ALT/SGPT 63.0 U/L (12-78); AST/SGOT 18.0 U/L (15-37); BILIRUBIN TOTAL 0.23 mg/dL (0.3-1.2); BUN CREA RATIO 27.0 (7.0-25.0); CREATININE SERUM 1.01 mg/dL (0.55-1.02); GFR 56.1; GLOBULINA 3.3 G/DL (2.4-3.5); GLUCOSE FASTING 129.0 mg/dL (65-100); OSMOLALITY SERUM 288.0 MOSM/KG (275-295)
[2025-05-09] MEDS ORDERED: LOSARTAN POTASSIUM 50 MG TABLET PO SCH (09:00)
[2025-05-10] MEDS ORDERED: METHYLPREDNISOLONE SOD SUCC 40 MG VIAL IV SCH ×2 (01:00→18:00)
[2025-05-10 02:30] VITALS: BP 126/85; O2SAT 98
[2025-05-10 08:57] VITALS: BP 133/88; O2SAT 98
[2025-05-10 17:30] VITALS: BP 136/80
[2025-05-11 01:44] VITALS: BP 126/83; O2SAT 100
[2025-05-11 09:05] VITALS: BP 110/73; O2SAT 97
[2025-05-11 17:41] VITALS: BP 131/75; O2SAT 97
[2025-05-11] MEDS ORDERED: METHYLPREDNISOLONE SOD SUCC 40 MG VIAL IV SCH ×2 (21:00)
[2025-05-12 02:51] VITALS: BP 127/83; O2SAT 100
[2025-05-12 05:18] LABS: BASO % 0.0 % (0.1-1.2); EOS # 0.14 (0.04-0.54); EOS % 2.9 % (0.7-7.0); LYMPH # 1.18 (1.18-3.74); LYMPH % 24.3 % (19.3-53.1); MEAN PLATELET VOLUME 10.10 fl (9.4-12.4); MONO # 0.36 (0.24-0.82); MONO % 7.4 % (4.7-12.5); NEUT # 3.16 (1.56-6.13); NEUT % 65.0 % (34.0-71.1); RED CELL DISTRIBUTION WIDTH 12.4 % (11.6-14.4)
[2025-05-12 05:34] LABS: ALT/SGPT 39.0 U/L (12-78); AST/SGOT 12.0 U/L (15-37); BILIRUBIN TOTAL 0.23 mg/dL (0.3-1.2); BUN CREA RATIO 21.0 (7.0-25.0); CREATININE SERUM 0.77 mg/dL (0.55-1.02); GFR 76.73; GLOBULINA 2.7 G/DL (2.4-3.5); GLUCOSE FASTING 137.0 mg/dL (65-100); OSMOLALITY SERUM 288.0 MOSM/KG (275-295)
[2025-05-12 07:00] VITALS: BP 138/87; O2SAT 100
[2025-05-12] MEDS ORDERED: IPRATROPIUM/ALBUTEROL SULFATE 3 ML AMPUL.NEB IH SCH (12:00)
[2025-05-12 17:16] VITALS: BP 142/88
[2025-05-13 01:22] VITALS: BP 120/75; O2SAT 100
[2025-05-13 08:59] VITALS: BP 118/74; O2SAT 97
[2025-05-13] MEDS ORDERED: METHYLPREDNISOLONE SOD SUCC 40 MG VIAL IV SCH (09:00)
[2025-05-13] MEDS ORDERED: IPRATROPIUM/ALBUTEROL SULFATE 3 ML AMPUL.NEB IH SCH (17:00)
[2025-05-13] MEDS ORDERED: LORATADINE10 MG PO (17:12)
[2025-05-13] MEDS ORDERED: IPRAT-ALBUT 0.5-3 ML IH (17:12)
[2025-05-13] MEDS ORDERED: ELIQUIS2.5 MG PO (17:13)
[2025-05-13] MEDS ORDERED: COZAAR50 MG PO (17:15)
[2025-05-13 17:16] VITALS: BP 119/75
[2025-05-13] MEDS ORDERED: LORAZEPAM1 MG PO (17:16)
[2025-05-13] MEDS ORDERED: SERTRALINE HCL50 MG PO (17:16)
[2025-05-13] MEDS ORDERED: REMERON15 M1 PO (17:16)
[2025-05-13] MEDS ORDERED: PRE PROTEIN1 EACH PO (17:17)
[2025-05-13] MEDS ORDERED: TUSSIN MUC100 MG/5 M PO (17:17)
[2025-05-13] MEDS ORDERED: MONTELUKAST SOD10 MG PO (17:17)
[2025-05-13] MEDS ORDERED: FLONASE16 GM NASAL (17:18)
[2025-05-13] MEDS ORDERED: FAMOTIDINE20 MG PO (17:19)
[2025-05-13] MEDS ORDERED: LANSOPRAZOLE30 MG PO (17:19)
[2025-05-13] MEDS ORDERED: CARAFATE1 GM PO (17:20)
[2025-05-13] MEDS ORDERED: ISOSORBIDE MONO30 MG PO (17:29)
[2025-05-13] MEDS ORDERED: MEGESTROL400 MG/11 PO (17:29)
[2025-05-13] MEDS ORDERED: CEPHALEXIN250 M1 PO (17:45)
== END 2025-05-13 18:28 | disposition home or self-care (01) | DRG 202 ==
LOC: ER 14:12 → MEDJ 05-06 13:49 → SEC-K 05-06 13:49 → MEDJ 05-06 22:33
PROVIDERS: General Practice; ADMIT Internal Medicine Cardiovascular Disease; ATTEND Internal Medicine Cardiovascular Disease
PROC: BW21ZZZ Computerized Tomography (CT Scan) of Abdomen and Pelvis (ICD-10-PCS; principal; 2025-05-05)
PROC: BW40ZZZ Ultrasonography of Abdomen (ICD-10-PCS; 2025-05-06)
PROC: 3E0F7GC Introduction of Other Therapeutic Substance into Respiratory Tract, Via Natural or Artificial Opening (ICD-10-PCS; 2025-05-06)
PROC: 4A12X4Z Monitoring of Cardiac Electrical Activity, External Approach (ICD-10-PCS; 2025-05-07)
DX: J45.51 Severe persistent asthma with (acute) exacerbation (principal); J18.9 Pneumonia, unspecified organism; J44.1 Chronic obstructive pulmonary disease with (acute) exacerbation; N17.8 Other acute kidney failure; E87.1 Hypo-osmolality and hyponatremia; E86.0 Dehydration; K29.70 Gastritis, unspecified, without bleeding

== ENCOUNTER → 2025-06-30 10:14 | Outpatient (CLI) | payer OTHER ==
[~2025-06-30 10:14] MED LIST changes: +CARAFATE1 GM PO; +CEPHALEXIN250 M1 PO; +COZAAR50 MG PO; +FLONASE16 GM NASAL; +LORAZEPAM1 MG PO
[2025-06-30 11:32] LABS: BASO % 0.1 % (0.1-1.2); EOS # 1.32 (0.04-0.54); EOS % 13.8 % (0.7-7.0); LYMPH # 2.07 (1.18-3.74); LYMPH % 21.6 % (19.3-53.1); MEAN PLATELET VOLUME 10.00 fl (9.4-12.4); MONO # 0.60 (0.24-0.82); MONO % 6.3 % (4.7-12.5); NEUT # 5.56 (1.56-6.13); NEUT % 57.9 % (34.0-71.1); RED CELL DISTRIBUTION WIDTH 12.6 % (11.6-14.4)
[2025-06-30 11:44] LABS: ERYTHROCYTE SEDIMENTATION RATE 11 mm/hr (0-30)
[2025-06-30 12:07] LABS: INR 1.16
[2025-06-30 12:22] LABS: ALT/SGPT 70.0 U/L (12-78); AST/SGOT 115.0 U/L (15-37); BILIRUBIN TOTAL 0.27 mg/dL (0.3-1.2); BUN CREA RATIO 21.0 (7.0-25.0); CHOL HDL RATIO 2.4 (0-5.0); CREATININE SERUM 1.14 mg/dL (0.55-1.02); GFR 48.78; GLOBULINA 3.4 G/DL (2.4-3.5); GLUCOSE FASTING 84.0 mg/dL (65-100); HDL 50.0 mg/dl (40-60); LDL 50.0 mg/dl (0-130); OSMOLALITY SERUM 290.0 MOSM/KG (275-295); T4 FREE 1.38 NG/ML (0.76-1.46); TSH 2.42 uIU/mL (0.358-3.74); VLDL 18.0 (0-39)
[2025-06-30 13:16] LABS: URINE APPEARANCE Cloudy; URINE BILIRRUBIN Moderate (NEGATIVE); URINE BLOOD Negative; URINE COLOR Dark Yellow; URINE GLUCOSE Negative (NEGATIVE); URINE KETONE 15 (NEGATIVE); URINE LEUKOCYTE Small; URINE NITRATE Negative; URINE UROBILINOGEN 1.0 E.U./dl
[2025-06-30 13:19] LABS: URINE BACTERIA 9.5 uL (0.0-1933); URINE CAST 17.30 uL (0.0-1.40); URINE EPITHELIAL CELLS 19.2 uL (0.0-38.8); URINE RBC 5.7 uL (0.0-20.8); URINE WBC 48.6 uL (0.0-23.2)
[2025-06-30 13:26] LABS: URINE PROTEIN 100 (NEGATIVE)
[2025-06-30 13:35] LABS: URINE CRYSTALS FEW /HPF
== END | disposition home or self-care (01) ==
LOC: LAB 10:14
PROVIDERS: ATTEND Internal Medicine
DX: D64.9 Anemia, unspecified (principal); E11.8 Type 2 diabetes mellitus with unspecified complications; I48.91 Unspecified atrial fibrillation; N39.0 Urinary tract infection, site not specified; E03.9 Hypothyroidism, unspecified; M35.1 Other overlap syndromes; E11.9 Type 2 diabetes mellitus without complications; E55.9 Vitamin D deficiency, unspecified; Z12.11 Encounter for screening for malignant neoplasm of colon; E78.2 Mixed hyperlipidemia; I11.9 Hypertensive heart disease without heart failure

== ENCOUNTER 2025-07-01 12:58 | Outpatient (CLI) | payer OTHER ==
[2025-07-01 14:16] LABS: ob POSITIVE (NEGATIVE)
== END 2025-07-01 13:12 | disposition home or self-care (01) ==
LOC: LAB 12:58
PROVIDERS: ATTEND Internal Medicine
DX: D64.9 Anemia, unspecified (principal); E11.8 Type 2 diabetes mellitus with unspecified complications; I48.91 Unspecified atrial fibrillation; N39.0 Urinary tract infection, site not specified; E03.9 Hypothyroidism, unspecified; M35.1 Other overlap syndromes; E11.9 Type 2 diabetes mellitus without complications; E55.9 Vitamin D deficiency, unspecified; Z12.11 Encounter for screening for malignant neoplasm of colon; E78.2 Mixed hyperlipidemia